=== PATIENT | male | born 1960 | race African-American/Black ===

== ENCOUNTER 2025-01-04 15:01 | Emergency (ER) | payer BC ==
[2025-01-04 15:49] LABS: #Basophils Less than 0.03 10x3/uL (0.0-0.2); #Eosinophils Less than 0.03 10x3/uL (0.0-0.7); #Monocytes 0.04 10x3/uL (0.11-0.59); #Neutrophils 2.10 10x3/uL (1.40-6.50); %Basophils 0.0 % (0.0-1.0); %Eosinophils 0.4 % (0.0-10.0); %Lymphocytes 13.2 % (21.0-51.0); %Monocytes 1.6 % (0.0-10.0); %Neutrophils 84.0 % (42.0-75.0); Hematocrit 27.9 % (42.0-52.0); Hemoglobin 9.5 g/dL (14.0-18.0); Mean Corpuscular Hemoglobin 31.8 pg (27.0-31.0); Mean Corpuscular Volume 93.3 fL (78.0-98.0); Platelet Count 175 10x3/uL (130-400); Red Blood Cell (RBC) Count 2.99 mill/uL (4.70-6.10); White Blood Cell (WBC) Count 2.50 10x3/uL (4.8-10.8)
[2025-01-04 15:53] LABS: ALT (SGPT) 10 U/L (Less than 45); AST (SGOT) 31 U/L (11-34); Albumin 3.1 g/dL (3.1-4.5); Alkaline Phosphatase 47 U/L (40-110); Anion Gap 11 mmol/L (10-20); BUN (Urea Nitrogen) 36 mg/dL (8.4-25.7); Bilirubin, Total 0.2 mg/dL (0.3-1.2); Calc. Creatinine Clearance 0 mL/min (70-130); Calcium 8.7 mg/dL (7.8-10.44); Carbon Dioxide 23 mmol/L (23-31); Chloride 108 mmol/L (98-107); Globulin 6.0 g/dL (2.4-3.5); Glucose 64 mg/dL (80-115); Lipase 85 U/L (8-78); Magnesium 1.8 mg/dL (1.6-2.6); Potassium 4.1 mmol/L (3.5-5.1); Sodium 138 mmol/L (136-145)
== END 2025-01-04 17:30 | disposition left against medical advice (07) ==
LOC: ERS 15:01
DX: R11.2 Nausea with vomiting, unspecified (principal); R50.9 Fever, unspecified; R94.31 Abnormal electrocardiogram [ECG] [EKG]; R79.89 Other specified abnormal findings of blood chemistry; I12.9 Hypertensive chronic kidney disease with stage 1 through stage 4 chronic kidney disease, or unspecified chronic kidney disease; N18.4 Chronic kidney disease, stage 4 (severe); Z79.899 Other long term (current) drug therapy
CPT/HCPCS: 36415; 71045; 80053; 83605; 83690; 83735; 84484; 85025; 87040; 87428; 93005; 96360